=== PATIENT | male | born 1955 | race Caucasian/White ===

== ENCOUNTER 2020-04-17 15:51 | Inpatient (IN) | payer OTHER, MEDICAID, SELFPAY ==
[2020-04-17] VITALS (26 sets, daily range): BP systolic 127–203; BP diastolic 72–108; PULSE 79–104; RESP 12–91; TEMP 36.7–38.8; O2SAT 92–99; BMI 28.5
--- NOTE | 2020-04-17 | DI.RAD.S_ITS ---
PROCEDURE: XR FOREARM RT 2V INDICATIONS: TRAUMA TECHNIQUE: 2 views of the forearm were acquired. COMPARISON: [facility], CR, XR ELBOW RT MIN 3V, 04/17/2020, 16:56. FINDINGS: Bones: No fractures or dislocations. No suspicious bony lesions. Soft tissues: No suspicious soft tissue calcifications or masses. The proximal forearm soft tissue swelling and likely hematoma. Small linear foreign body at the dorsal aspect of the proximal one third of the forearm as seen on the lateral projection. IMPRESSION: 1. No fracture or dislocation. 2. Small linear foreign body at the dorsal aspect of the proximal forearm in the region of soft tissue swelling. Dictated by: Ronny Yi M.D. on 04/17/2020 at 17:27 Approved by: Ronny Yi M.D. on 04/17/2020 at 17:30
--- NOTE | 2020-04-17 | DI.RAD.S_ITS ---
PROCEDURE: XR ELBOW RT MIN 3V INDICATIONS: TRAUMA TECHNIQUE: 3 views of the elbow were acquired. COMPARISON: None. FINDINGS: Bones: No fractures or dislocations. No suspicious bony lesions. Soft tissues: No elbow joint effusion. No suspicious soft tissue calcifications. IMPRESSION: No acute elbow fracture or dislocation. No joint effusion. Dictated by: Phil Erickson M.D. on 04/17/2020 at 17:32 Approved by: Phil Erickson M.D. on 04/17/2020 at 17:33
--- NOTE | 2020-04-17 15:57 | DI.RAD.S_ITS ---
PROCEDURE: XR PELVIS 1-2V INDICATIONS: trauma TECHNIQUE: Single AP view(s) of the pelvis acquired. COMPARISON: None. FINDINGS: Bones: No definite fractures or dislocations. No suspicious bony lesions. Soft tissues: Visualized bowel gas pattern is normal. No suspicious soft tissue calcifications. IMPRESSION: AP pelvis without definite fracture or dislocation. Consider further evaluation with cross-sectional imaging if there is high clinical suspicion for radiographically occult fracture. Dictated by: Sergey Mcmahan M.D. on 04/17/2020 at 16:19 Approved by: Sergey Mcmahan M.D. on 04/17/2020 at 16:20
--- NOTE | 2020-04-17 15:57 | DI.CT.S_ITS ---
PROCEDURE: CT CHEST ABD PEL W CON INDICATIONS: Trauma TECHNIQUE: After the administration of intravenous contrast, 5 mm thick sections acquired from the lung apices to the symphysis. 2.5 mm thick coronal and sagittal reformats were acquired. Additional 7 mm thick coronal maximum intensity projection (MIP) reformats acquired through the lungs. Optional 10-minute delayed imaging may be performed from the kidneys to the bladder. For radiation dose reduction, the following was used: automated exposure control, adjustment of mA and/or kV according to patient size. COMPARISON: None. FINDINGS: Image quality: Excellent. CHEST: Lungs: Patchy ground glass opacities involving the anterior aspect of the right upper lobe may represent early pulmonary contusion. Peripheral right middle lobe and right lower lobe streaky densities favored to represent atelectasis versus scarring. Patchy peripheral groundglass and streaky opacities of the left lower lobe are favored to represent atelectasis. No evidence for left-sided pulmonary contusions or lacerations. No pneumothorax or hemothorax. Central and peripheral airways appear patent and normal in caliber. Mediastinum: No mediastinal hematomas. Heart size is normal. No pericardial effusion. Thoracic aorta and pulmonary arteries demonstrate normal size and enhancement. No mediastinal or hilar adenopathy. Esophagus is normal in caliber. No hiatal hernia. Chest wall: Nondisplaced superior sternal fracture. No substernal hematoma. Nondisplaced posterior right first rib fracture. Age-indeterminate lateral left fifth rib fracture No rib fractures. No subcutaneous emphysema. No axillary or supraclavicular adenopathy. Thyroid gland is unremarkable. ABDOMEN: Solid organs: Liver is normal in size and enhancement, without lacerations. Multiple hepatic cysts. Gallbladder contains several gallstones. No CT evidence for acute cholecystitis. Biliary system is non-dilated. Pancreas enhances normally, without transection. Spleen is normal in size and enhancement, without lacerations. Coarse splenic calcifications likely from prior granulomatous infection. Right sided adrenal hematoma and periadrenal stranding. No left adrenal hematomas. Both kidneys enhance normally, without hydronephrosis or lacerations. Large partially exophytic right renal cyst measuring up to 9.7 cm in maximum dimension. Peritoneum and bowel: No free fluid or air. Extensive scattered colonic diverticula without acute diverticulitis. Segment of submucosal fatty hypertrophy of the duodenum and proximal jejunum likely sequela of chronic inflammatory or infectious process.. Unenhanced bowel loops demonstrate normal wall thickness and caliber. Nodes and vessels: No retroperitoneal or mesenteric adenopathy. Aorta and inferior vena cava are normal in size and enhancement. Miscellaneous: No ventral hernias. PELVIS: Genitourinary: Bladder wall thickness is normal. Miscellaneous: No inguinal hernias or adenopathy. Bones: Pelvic ring and hip joints appear intact. No vertebral compression fractures. IMPRESSION: 1. Nondisplaced superior sternal fracture without substernal hematoma or pericardial effusion. 2. Nondisplaced posterior right first rib fracture and age indeterminate lateral left fifth rib fracture. 3. Patchy groundglass opacity involving the anterior aspect of the right upper lobe likely representing early pulmonary contusion. Followup recommended to ensure resolution. 4. Right adrenal gland hematoma with periadrenal stranding. 5. Colonic diverticulosis without acute diverticulitis. 6. Cholelithiasis without CT evidence for acute cholecystitis. 7. Other chronic findings as above. Findings were discussed with Dr. Bashir of the emergency room at 1725 hrs. Dictated by: Sergey Mcmahan M.D. on 04/17/2020 at 17:04 Approved by: Sergey Mcmahan M.D. on 04/17/2020 at 17:29
--- NOTE | 2020-04-17 15:57 | DI.RAD.S_ITS ---
PROCEDURE: XR CHEST 1V INDICATIONS: trauma TECHNIQUE: One view of the chest was acquired. COMPARISON: None. FINDINGS: Surgical changes and devices: None. Lungs and pleura: Lungs are clear. No pleural effusions or pneumothorax. Azygos lobe fissure is noted incidentally. Mediastinum: Mediastinal contours appear normal accounting for patient positioning and rotation.. Heart size is normal. Bones and chest wall: No suspicious bony lesions. Overlying soft tissues appear unremarkable. IMPRESSION: Chest without acute cardiopulmonary abnormalities. Dictated by: Sergey Mcmahan M.D. on 04/17/2020 at 16:17 Approved by: Sergey Mcmahan M.D. on 04/17/2020 at 16:18
--- NOTE | 2020-04-17 15:57 | DI.CT.S_ITS ---
PROCEDURE: CT HEAD/BRAIN WO CON INDICATIONS: Trauma TECHNIQUE: Noncontrast 4.5 mm thick angled axial sections acquired from the foramen magnum to the vertex, with coronal and sagittal reformats. For radiation dose reduction, the following was used: automated exposure control, adjustment of mA and/or kV according to patient size. COMPARISON: None. FINDINGS: Image quality: Excellent. CSF spaces: Basal cisterns are patent. No extra-axial fluid collections. Ventricles are normal in size and shape. Brain: No midline shift. No intracranial masses or hemorrhage. Williamson-white matter interface is normal. Skull and face: Calvarium and visualized facial bones are intact, without suspicious lesions. Sinuses: Visualized sinuses and mastoids are clear. IMPRESSION: No CT evidence of acute intracranial pathology. Dictated by: Phil Erickson M.D. on 04/17/2020 at 16:33 Approved by: Phil Erickson M.D. on 04/17/2020 at 16:33
--- NOTE | 2020-04-17 15:57 | DI.CT.S_ITS ---
PROCEDURE: CT CERVICAL SPINE WO CON INDICATIONS: Trauma TECHNIQUE: Noncontrast 3 mm thick sections acquired from the skull base to the T4 level. Sagittal and coronal reformats were then constructed. For radiation dose reduction, the following was used: automated exposure control, adjustment of mA and/or kV according to patient size. COMPARISON: None. FINDINGS: Image quality: Excellent. Bones: No fractures or dislocations. Visualized superior ribs are intact. Mild degenerative endplate changes are noted at C4-5 through C6-7 levels. Minimal retrolisthesis of C4 on C5 is seen. Minimal anterolisthesis of C3 on C4 is also noted. Soft tissues: Prevertebral soft tissues are normal in thickness. No paravertebral hematomas. No apical pneumothoraces. IMPRESSION: 1. No acute cervical spine fracture or dislocation. 2. Degenerative disc disease throughout cervical spine as above. Minimal spondylolisthesis at C3-4 and C4-5 levels. Dictated by: Phil Erickson M.D. on 04/17/2020 at 16:33 Approved by: Phil Erickson M.D. on 04/17/2020 at 16:39
[2020-04-17 16:09] LABS: Add Manual Diff / Slide Review NO; Basophils Absolute Auto 100 /uL (0-100); Eosinophils Absolute Auto 300 /uL (0-450); Eosinophils Percent Auto 5.1 % (2-4); Hematocrit 43.6 % (41-53); Hemoglobin 15.6 g/dL (13.5-17.5); Lymphocytes Absolute Auto 1600 /uL (1100-4500); Lymphocytes Percent Auto 23.1 % (25-40); Mean Corpuscular HGB Conc 35.9 % (30-36); Mean Corpuscular Hemoglobin 33.1 PG (26-34); Mean Corpuscular Volume 92.3 fL (80-100); Monocytes Absolute Auto 800 /uL (0-900); Monocytes Percent Auto 11.6 % (3-14); Neutrophils Absolute Auto 4000 /uL (1500-7000); Neutrophils Percent Auto 59.2 % (50-75); Platelet Count 184 X10^3/uL (150-400); Red Blood Cell Count 4.72 X10^6/uL (4.5-5.9); White Blood Cell Count 6.8 X10^3/uL (4.5-11.0)
[2020-04-17 16:16] LABS: Prothrombin Time 11.8 SECONDS (10.1-12.7)
[2020-04-17 16:19] LABS: PTT Partial Thromboplastin Tim 26 SECONDS (26.4-36.2)
[2020-04-17 16:23] LABS: Alanine Aminotransferase 56 IU/L (<50); Albumin 4.5 g/dL (3.5-5.0); Albumin Globulin Ratio 1.4 (1.0-2.8); Alkaline Phosphatase 63 U/L (38-126); Amylase 98 U/L (30-110); Aspartate Aminotransferase 68 IU/L (17-59); BUN Creatinine Ratio 23.8 (6-22); Bilirubin Total 0.8 mg/dL (0.2-1.3); Blood Urea Nitrogen 20 mg/dL (9-20); Calcium 9.4 mg/dL (8.4-10.2); Carbon Dioxide 27 mmol/L (22-32); Chloride 107 mmol/L (98-107); Estimated Glomerular Filt Rate > 60.0 mL/min (>60); Ethanol (ETOH) < 10 mg/dL; Globulin 3.2 g/dL (1.7-4.1); Glucose 112 mg/dL (80-110); HEMOLYSIS 45 (0-50); Lipase 128 U/L (23-300); Potassium 4.2 mmol/L (3.4-5.1); Sodium 141 mmol/L (137-145); Total Protein 7.7 g/dL (6.3-8.2)
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
[2020-04-17] MEDS: MORPHINE 2 MG/ML INJ IV ×2 (18:29→19:03)
[2020-04-17] MEDS: PROPARACAINE 0.5% OPHTH SOL 1 DROPS EYE-BOTH (18:50)
--- NOTE | 2020-04-17 18:50 | PC.NURSE ---
verbal order from dr. Barfield to infuse 600ml NS from medic bag. 0.9%NS infused. see I&'s flowsheet.
[2020-04-17] MEDS: FLUORESCEIN 1 MG STRIP EYE-BOTH (18:52)
[2020-04-17] MEDS: ERYTHROMYCIN OPHTH 1 GM OINT 1 APPLIC EYE-LEFT ×2 (19:08→20:10)
[2020-04-17] MEDS: BACITRACIN OINT 0.9 GM PCKT 1 APPLIC TOP (19:18)
[2020-04-17 19:19] LABS: Bacteria Urine None Seen
[2020-04-17 19:21] LABS: Appearance Urine UA CLEAR; Bilirubin Urine UA NEGATIVE (NEGATIVE); Color Urine UA YELLOW; Glucose Urine UA NEGATIVE (Negative); Ketones Urine UA NEGATIVE (NEGATIVE); Leukocyte Esterase Urine UA NEGATIVE (NEGATIVE); Nitrite Urine UA NEGATIVE (Negative); Occult Blood Urine UA 1+ (Negative); Protein Urine UA NEGATIVE (Negative); Specific Gravity Urine UA <=1.005 (1.000-1.035); Urobilinogen Urine UA 0.2 E.U./dL (0.2)
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
[2020-04-17 19:37] LABS: Culture Indicated Urine Cult Not Indicated; RBC Urine 5-10/HPF (0-5/HPF); WBC Urine 0-1/HPF (0-5/HPF)
[2020-04-17] MEDS: LACTATED RINGERS 1,000 ML 125 ML IV (20:09)
[2020-04-17] MEDS: lisinopriL 10 MG TABLET 30 MG PO (20:17)
[2020-04-17] MEDS: ACETAMINOPHEN 325 MG TABLET 650 MG PO (20:18)
[2020-04-17] MEDS: GABAPENTIN 300 MG CAPSULE PO (20:18)
[2020-04-17] MEDS: LORATADINE 10 MG TABLET PO (20:19)
[2020-04-17] MEDS: OXYCODONE IR 5 MG TABLET 7.5 MG PO (20:19)
[2020-04-17 20:49] LABS: COVID19 -Nasal RAPID Negative (Negative)
[2020-04-17 20:53] LABS: Creatine Kinase 260 U/L (55-170)
[2020-04-17 21:06] LABS: Troponin I 0.014 ng/mL (0.01-0.034)
[2020-04-17 21:09] LABS: CKMB % Relative Index 1.2 % (1.5-5.0); Creatine Kinase MB 3.21 ng/mL (<2.37)
[2020-04-17] MEDS: TAMSULOSIN 0.4 MG CAPSULE PO (22:11)
[2020-04-18] VITALS (10 sets, daily range): BP systolic 119–163; BP diastolic 58–83; PULSE 71–95; RESP 12–18; TEMP 36.6–37.3; O2SAT 91–95; BMI 28.5
[2020-04-18] MEDS: OXYCODONE IR 5 MG TABLET 7.5 MG PO ×2 (00:52→09:22)
[2020-04-18] MEDS: LACTATED RINGERS 1,000 ML 125 ML IV ×3 (04:44→23:40)
[2020-04-18 05:33] LABS: Add Manual Diff / Slide Review NO; Basophils Absolute Auto 0 /uL (0-100); Basophils Percent Auto 0.4 % (0-2); Eosinophils Absolute Auto 0 /uL (0-450); Eosinophils Percent Auto 0.2 % (2-4); Hematocrit 37.4 % (41-53); Hemoglobin 13.2 g/dL (13.5-17.5); Lymphocytes Absolute Auto 600 /uL (1100-4500); Lymphocytes Percent Auto 7.7 % (25-40); Mean Corpuscular HGB Conc 35.4 % (30-36); Mean Corpuscular Hemoglobin 32.7 PG (26-34); Mean Corpuscular Volume 92.3 fL (80-100); Monocytes Absolute Auto 800 /uL (0-900); Monocytes Percent Auto 10.5 % (3-14); Neutrophils Absolute Auto 6000 /uL (1500-7000); Neutrophils Percent Auto 81.2 % (50-75); Platelet Count 132 X10^3/uL (150-400); Red Blood Cell Count 4.05 X10^6/uL (4.5-5.9); Red Cell Distribution Width 13.2 % (11.6-14.8); White Blood Cell Count 7.3 X10^3/uL (4.5-11.0)
[2020-04-18 05:39] LABS: Creatine Kinase 320 U/L (55-170)
[2020-04-18 05:43] LABS: BUN Creatinine Ratio 21.7 (6-22); Blood Urea Nitrogen 18 mg/dL (9-20); Calcium 8.7 mg/dL (8.4-10.2); Carbon Dioxide 26 mmol/L (22-32); Chloride 108 mmol/L (98-107); Estimated Glomerular Filt Rate > 60.0 mL/min (>60); Glucose 127 mg/dL (80-110); HEMOLYSIS < 15 (0-50); Sodium 139 mmol/L (137-145)
[2020-04-18 05:48] LABS: Alanine Aminotransferase 49 IU/L (<50); Albumin 3.6 g/dL (3.5-5.0); Albumin Globulin Ratio 1.5 (1.0-2.8); Alkaline Phosphatase 51 U/L (38-126); Aspartate Aminotransferase 48 IU/L (17-59); Bilirubin Total 1.2 mg/dL (0.2-1.3); Bilirubin Unconjugated 1.2 mg/dL (0.0-1.1); Globulin 2.4 g/dL (1.7-4.1); HEMOLYSIS < 15 (0-50)
[2020-04-18 05:52] LABS: Troponin I < 0.012 ng/mL (0.01-0.034)
[2020-04-18 05:54] LABS: CKMB % Relative Index 0.8 % (1.5-5.0); Creatine Kinase MB 2.54 ng/mL (<2.37)
[2020-04-18 06:18] LABS: Prostate Specific Antigen 3.67 ng/mL (0.10-4.00)
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
[2020-04-18] MEDS: SENNOSIDES 8.6 MG TABLET 17.2 MG PO (09:19)
[2020-04-18] MEDS: KETOROLAC 15 MG/ML VIAL IV ×3 (09:19→21:39)
[2020-04-18] MEDS: GABAPENTIN 300 MG CAPSULE PO ×2 (09:19→21:39)
[2020-04-18] MEDS: ERYTHROMYCIN OPHTH 1 GM OINT 1 APPLIC EYE-LEFT ×2 (09:49→21:42)
[2020-04-18 13:34] LABS: Hematocrit 37.4 % (41-53)
--- NOTE | 2020-04-18 14:21 | PM.PN.1 ---
Subjective Subjective Date Patient Seen: 04/18/20 Time Patient Seen: 14:21 Interval history: The patient was seen this morning and now. He was complaining of more eye pain on the left. His breathing is limited by chest pain. Feels a little bit nauseated. Has been able to void on his own. No new complaints of pain. Does not think he is getting his albuterol. Exam Vital Signs (past 8 hours): - 04/18/20 09:32 04/18/20 12:00 Temperature 98 F 98.8 F Pulse Rate 75 71 Respiratory Rate 13 16 Blood Pressure 119/67 122/73 Pulse Oximetry 94 94 Oxygen Delivery Method Room Air,Nasal Cannula Oxygen Flow Rate 0 Narrative Exam Narrative: Patient has a dry scab right temporal area. Small tiny lacerations noted about his face and right arm. Swelling in bruise at the right elbow area has decreased. Lungs actually has fairly good respiratory effort. Clear to auscultation. Heart regular rate and rhythm without murmur gallop. Abdomen is soft protuberant no obvious tenderness or guarding. Objective Labs Result Diagrams: 04/18/20 13:23 04/18/20 05:00 Labs: Laboratory Results - last 24 hr 04/17/20 04/17/20 04/17/20 15:58 15:58 15:58 WBC 6.8 RBC 4.72 Hgb 15.6 Hct 43.6 MCV 92.3 MCH 33.1 MCHC 35.9 RDW 13.0 Plt Count 184 Neut % (Auto) 59.2 Lymph % (Auto) 23.1 L Hutch[place] % (Auto) 11.6 Eos % (Auto) 5.1 H Baso % (Auto) 1.0 Neut # (Auto) 4000 Lymph # (Auto) 1600 [place] # (Auto) 800 Eos # (Auto) 300 Baso # (Auto) 100 PT 11.8 INR 1.0 APTT 26 L Sodium 141 Potassium 4.2 Chloride 107 Carbon Dioxide 27 BUN 20 Creatinine 0.84 Estimated GFR > 60.0 BUN/Creatinine Ratio 23.8 H Glucose 112 H Calcium 9.4 Total Bilirubin 0.8 Conjugated Bilirubin Unconjugated Bilirubin AST 68 H ALT 56 H Alkaline Phosphatase 63 Total Creatine Kinase CK-MB (CK-2) CK-MB (CK-2) Rel Index Troponin I Total Protein 7.7 Albumin 4.5 Globulin 3.2 Albumin/Globulin Ratio 1.4 Amylase 98 Lipase 128 Prostate Specific Ag Urine Color Urine Appearance Urine pH Ur Specific Nye Urine Protein Urine Glucose (UA) Urine Ketones Urine Occult Blood Urine Nitrate Urine Bilirubin Urine Urobilinogen Ur Leukocyte Esterase Urine RBC Urine WBC Urine Bacteria Ur Culture Indicated? Ethyl Alcohol < 10 COVID-19 PCR Blood Type Antibody Screen 04/17/20 04/17/20 04/17/20 15:58 16:17 18:08 WBC RBC Hgb Hct MCV MCH MCHC RDW Plt Count Neut % (Auto) Lymph % (Auto) Hutchinson % (Auto) Eos % (Auto) Baso % (Auto) Neut # (Auto) Lymph # (Auto) Hutch[place] # (Auto) Eos # (Auto) Baso # (Auto) PT INR APTT Sodium Potassium Chloride Carbon Dioxide BUN Creatinine Estimated GFR BUN/Creatinine Ratio Glucose Calcium Total Bilirubin Conjugated Bilirubin Unconjugated Bilirubin AST ALT Alkaline Phosphatase Total Creatine Kinase CK-MB (CK-2) CK-MB (CK-2) Rel Index Troponin I Total Protein Albumin Globulin Albumin/Globulin Ratio Amylase Lipase Prostate Specific Ag Urine Color Yellow Urine Appearance Clear Urine pH 5.0 Ur Specific Nye <=1.005 Urine Protein Negative Urine Glucose (UA) Negative Urine Ketones Negative Urine Occult Blood 1+ H Urine Nitrate Negative Urine Bilirubin Negative Urine Urobilinogen 0.2 Ur Leukocyte Esterase Negative Urine RBC 5-10/hpf H Urine WBC 0-1/hpf Urine Bacteria None seen Ur Culture Indicated? Cult not indicated Ethyl Alcohol COVID-19 PCR Negative Blood Type A Positive Antibody Screen Negative 04/17/20 04/18/20 04/18/20 20:35 05:00 05:00 WBC RBC Hgb Hct MCV MCH MCHC RDW Plt Count Neut % (Auto) Lymph % (Auto) Hutchinson % (Auto) Eos % (Auto) Baso % (Auto) Neut # (Auto) Lymph # (Auto) Hutch[place] # (Auto) Eos # (Auto) Baso # (Auto) PT INR APTT Sodium Potassium Chloride Carbon Dioxide BUN Creatinine Estimated GFR BUN/Creatinine Ratio Glucose Calcium Total Bilirubin Conjugated Bilirubin Unconjugated Bilirubin AST ALT Alkaline Phosphatase Total Creatine Kinase 260 H 320 H CK-MB (CK-2) 3.21 H 2.54 H CK-MB (CK-2) Rel Index 1.2 L 0.8 L Troponin I 0.014 < 0.012 Total Protein Albumin Globulin Albumin/Globulin Ratio Amylase Lipase Prostate Specific Ag 3.67 Urine Color Urine Appearance Urine pH Ur Specific Nye Urine Protein Urine Glucose (UA) Urine Ketones Urine Occult Blood Urine Nitrate Urine Bilirubin Urine Urobilinogen Ur Leukocyte Esterase Urine RBC Urine WBC Urine Bacteria Ur Culture Indicated? Ethyl Alcohol COVID-19 PCR Blood Type Antibody Screen 04/18/20 04/18/20 04/18/20 05:00 05:00 05:00 WBC 7.3 RBC 4.05 L Hgb 13.2 L Hct 37.4 L MCV 92.3 MCH 32.7 MCHC 35.4 RDW 13.2 Plt Count 132 L Neut % (Auto) 81.2 H D Lymph % (Auto) 7.7 L Hutchinson % (Auto) 10.5 Eos % (Auto) 0.2 L Baso % (Auto) 0.4 Neut # (Auto) 6000 Lymph # (Auto) 600 L Hutchinson # (Auto) 800 Eos # (Auto) 0 Baso # (Auto) 0 PT INR APTT Sodium 139 Potassium 4.0 Chloride 108 H Carbon Dioxide 26 BUN 18 Creatinine 0.83 Estimated GFR > 60.0 BUN/Creatinine Ratio 21.7 Glucose 127 H Calcium 8.7 Total Bilirubin 1.2 Conjugated Bilirubin 0.0 Unconjugated Bilirubin 1.2 H AST 48 ALT 49 Alkaline Phosphatase 51 Total Creatine Kinase CK-MB (CK-2) CK-MB (CK-2) Rel Index Troponin I Total Protein 6.0 L Albumin 3.6 Globulin 2.4 Albumin/Globulin Ratio 1.5 Amylase Lipase Prostate Specific Ag Urine Color Urine Appearance Urine pH Ur Specific Nye Urine Protein Urine Glucose (UA) Urine Ketones Urine Occult Blood Urine Nitrate Urine Bilirubin Urine Urobilinogen Ur Leukocyte Esterase Urine RBC Urine WBC Urine Bacteria Ur Culture Indicated? Ethyl Alcohol COVID-19 PCR Blood Type Antibody Screen 04/18/20 13:23 WBC RBC Hgb Hct 37.4 L MCV MCH MCHC RDW Plt Count Neut % (Auto) Lymph % (Auto) Hutch[place] % (Auto) Eos % (Auto) Baso % (Auto) Neut # (Auto) Lymph # (Auto) [place] # (Auto) Eos # (Auto) Baso # (Auto) PT INR APTT Sodium Potassium Chloride Carbon Dioxide BUN Creatinine Estimated GFR BUN/Creatinine Ratio Glucose Calcium Total Bilirubin Conjugated Bilirubin Unconjugated Bilirubin AST ALT Alkaline Phosphatase Total Creatine Kinase CK-MB (CK-2) CK-MB (CK-2) Rel Index Troponin I Total Protein Albumin Globulin Albumin/Globulin Ratio Amylase Lipase Prostate Specific Ag Urine Color Urine Appearance Urine pH Ur Specific Nye Urine Protein Urine Glucose (UA) Urine Ketones Urine Occult Blood Urine Nitrate Urine Bilirubin Urine Urobilinogen Ur Leukocyte Esterase Urine RBC Urine WBC Urine Bacteria Ur Culture Indicated? Ethyl Alcohol COVID-19 PCR Blood Type Antibody Screen Assessment & Plan Assessment and plan (1) Chest trauma: Problem details: Continue deep breathing coughing. Encouraged use of incentive spirometer. Continue pain medication. A because in little nausea so we may have to watch that Status: Acute (2) Concussion: Problem details: Observe for deterioration. Observe for symptoms. Treat his headache. Status: Acute (3) Traumatic adrenal hematoma: Problem details: No abdominal wall tenderness. No tenderness in the right abdomen. Hematocrit initially for went from 43 at 37 but has been at 37 and has not changed. Therefore will continue to observe Status: Acute (4) Benign prostatic hyperplasia: Problem details: PSA is normal. Will continue Flomax Status: Acute (5) Seasonal allergies: Problem details: Continue Claritin daily Status: Acute (6) Asthma: Problem details: Continue patient's inhalers. Patient actually has them in the room and can use them. Work on deep breathing and coughing. Status: Acute (7) Essential hypertension with goal blood pressure less than 130/85: Problem details: Continue patient's lisinopril. Blood pressure much improved from yesterday Status: Acute (8) Sternal fracture: Problem details: Pain medication. Because he has a sternal fracture also evaluate the heart for contusion. Cardiac enzymes and EKGs negative for cardiac injury. Doubt contusion. Qualifiers: Encounter type: initial encounter Fracture type: closed Sternal location: body of sternum Qualified Code(s): S22.22XA - Fracture of body of sternum, initial encounter for closed fracture Status: Acute (9) Abrasion of cornea, left: Problem details: Talk to Dr. Gamino or of the safety director. He saw the patient and reports a linear abrasion in the left eye which will probably be healed by tomorrow. There is no evidence of any significant I trauma or any foreign body such as glass in the eye. Qualifiers: Encounter type: initial encounter Qualified Code(s): S05.02XA - Injury of conjunctiva and corneal abrasion without foreign body, left eye, initial encounter Status: Acute (10) Fracture of rib: Problem details: Patient has a left 5th rib fracture. Will continue pain medication encouraged deep breathing and coughing and use An incentive spirometer Qualifiers: Encounter type: initial encounter Laterality: unspecified laterality Rib fracture type: multiple ribs Status: Acute Assessment & Plan narrative: Discharge planning and physical therapy to see to mobilize and plan for discharge. Expect he may be able to be discharged tomorrow.
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
[2020-04-18] MEDS: TAMSULOSIN 0.4 MG CAPSULE PO (15:39)
[2020-04-18] MEDS: ONDANSETRON 4 MG/2 ML INJ IV (15:39)
[2020-04-18] MEDS: lisinopriL 10 MG TABLET 30 MG PO (21:39)
[2020-04-18] MEDS: LORATADINE 10 MG TABLET PO (21:39)
[2020-04-18] MEDS: DOCUSATE 100 MG CAPSULE PO (21:39)
--- NOTE | 2020-04-18 21:54 | DI.RAD.S_ITS ---
PROCEDURE: XR CHEST 1V INDICATIONS: increasing 02 needs TECHNIQUE: One view of the chest was acquired. COMPARISON: [facility], CR, XR CHEST 1VW (PORTABLE), 04/18/2017, 19:23. [facility], CR, XR CHEST 1V, 04/17/2020, 15:40. FINDINGS: Surgical changes and devices: None. Lungs and pleura: Mild streaky bibasilar opacities. No pleural effusions or pneumothorax. A new mild patchy right basilar opacity is noted. No focal consolidation. Mediastinum: The cardiomediastinal contours remain stable. Heart size is normal. Bones and chest wall: No suspicious bony lesions. Overlying soft tissues appear unremarkable. IMPRESSION: Mild streaky bibasilar opacities likely representing atelectasis. A new right basilar patchy opacity may represent developing airspace disease, aspiration, versus pulmonary contusion given history of recent trauma. No focal consolidation. Dictated by: Sergey Mcmahan M.D. on 04/19/2020 at 9:01 Approved by: Sergey Mcmahan M.D. on 04/19/2020 at 9:10
--- NOTE | 2020-04-18 22:01 | PC.NURSE ---
2200- Patient assisted up to the bathroom. Patient unable to have a BM but did pass gas. Patient has a productive cough, pierre colored sputum. Very small amount. Patient has bibasilar crackles and is desaturating to 87-88% on room air. Patient placed on 2l 02 via cannula, patient given his IS to do. Patient is able to get IS to 2500 he did 5 breaths. Patient has a great amount of discomfort with cough and with deep breathing. Medicated per order for pain. Dr. Mei updated on patient pulmonary status, order rec.
[2020-04-18] MEDS: ALBUTEROL HFA 60 PUFF/8 GM INH INH (23:30)
[2020-04-19] VITALS (9 sets, daily range): BP systolic 108–150; BP diastolic 63–78; PULSE 63–92; RESP 12–16; TEMP 36.6–37.7; O2SAT 93–97
[2020-04-19] MEDS: KETOROLAC 15 MG/ML VIAL IV ×3 (04:53→20:54)
[2020-04-19] MEDS: LACTATED RINGERS 1,000 ML 125 ML IV (06:55)
[2020-04-19] MEDS: SENNOSIDES 8.6 MG TABLET 17.2 MG PO (08:34)
[2020-04-19] MEDS: GABAPENTIN 300 MG CAPSULE PO ×2 (08:34→20:48)
[2020-04-19] MEDS: OXYCODONE IR 5 MG TABLET 7.5 MG PO ×2 (08:35→14:29)
[2020-04-19] MEDS: DOCUSATE 100 MG CAPSULE PO (08:35)
[2020-04-19] MEDS: ACETAMINOPHEN 325 MG TABLET 650 MG PO ×2 (08:35→14:29)
[2020-04-19] MEDS: ERYTHROMYCIN OPHTH 1 GM OINT 1 APPLIC EYE-LEFT ×2 (10:38→20:48)
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
--- NOTE | 2020-04-19 13:46 | CM.DPC ---
DCP: continued: case received and discussed in Team Rounds. PT is seeing pt for the first time today. PT Amada has just given update. She states that pt would benefit from OT evaluation/order for same /now obtained. She notes that with the sternal precautions especially pt will need some different ways to manage his basic functional abilities. Will be following. Am unsure if pt has a PCP and also how much help he will actually have in his current home setting. Per LOPEZ/Eduard Dewitt in her note yesterday pt reports that his friend/family will be able to assist him. Will be checking in with pt as time allows.
--- NOTE | 2020-04-19 15:19 | P.PN_ITS ---
Subjective Subjective Date Patient Seen: 04/19/20 Time Patient Seen: 15:19 Interval history: Patient having some low-grade intermittent nausea. He developed hypoxia mild last night. Chest x-ray showed possible contusion or atelectasis in the right lobe. He is breathing comfortably he says. He does have pain with deep inspiration. He is using his incentive spirometer and his inhalers. He did have a bowel movement that was normal though small. He thinks he may be getting a little constipated. He was up with physical therapy today ambulating. Exam Vital Signs (past 8 hours): - 04/19/20 08:00 04/19/20 12:39 Temperature 98.2 F 98.8 F Pulse Rate 91 H 69 Respiratory Rate 12 12 Blood Pressure 137/78 108/63 Pulse Oximetry 93 96 Oxygen Delivery Method Room Air Oxygen Flow Rate 2 Narrative Exam Narrative: Good air movement. Clear. Heart regular rate and rhythm. Still was some chest pain related to his sternal and rib fracture. Abdomen is soft protuberant no tenderness at this time. Patient is alert and oriented. His extraocular movements are intact. He reports his vision is normal. Objective Labs Result Diagrams: 04/18/20 13:23 04/18/20 05:00 Assessment & Plan Assessment and plan (1) Concussion: Problem details: Observe for deterioration. Observe for symptoms. Treat his headache. Will discharge on Elavil as well as gabapentin. Stable at this time Status: Acute (2) Traumatic adrenal hematoma: Problem details: No abdominal wall tenderness. No tenderness in the right abdomen. Hematocrit initially for went from 43 at 37 but has been at 37 and has not changed. Therefore will continue to observe Status: Acute (3) Benign prostatic hyperplasia: Problem details: PSA is normal. Will continue Flomax. Urinating well Status: Acute (4) Seasonal allergies: Problem details: Continue Claritin daily Status: Acute (5) Asthma: Problem details: Continue patient's inhalers. Patient actually has them in the room and can use them. Work on deep breathing and coughing. Status: Acute (6) Essential hypertension with goal blood pressure less than 130/85: Problem details: Continue patient's lisinopril. Blood pressure much improved from yesterday Status: Acute (7) Sternal fracture: Problem details: Pain medication. Because he has a sternal fracture also evaluate the heart for contusion. Cardiac enzymes and EKGs negative for cardiac injury. Doubt contusion. Work on deep breathing and coughing however due to his hypoxia. Qualifiers: Encounter type: initial encounter Fracture type: closed Sternal location: body of sternum Qualified Code(s): S22.22XA - Fracture of body of sternum, initial encounter for closed fracture Status: Acute (8) Fracture of rib: Problem details: Patient has a left 5th rib fracture. Will continue pain medication encouraged deep breathing and coughing and use An incentive spirometer. Will adjust his pain medication. Part of his hypoxia may be related to narcotics he has been getting. I would like to reduce or eliminate those. Qualifiers: Encounter type: initial encounter Laterality: unspecified laterality Rib fracture type: multiple ribs Status: Acute (9) Abrasion of cornea, left: Problem details: Talk to Dr. Littlejohn the program director/morning show host yesterday. He saw the patient and reports a linear abrasion in the left eye which will probably be healed by tomorrow. There is no evidence of any significant I trauma or any foreign body such as glass in the eye. Will stop his antibiotic ointment tonight. Qualifiers: Encounter type: initial encounter Qualified Code(s): S05.02XA - Injury of conjunctiva and corneal abrasion without foreign body, left eye, initial encounter Status: Acute
[2020-04-19] MEDS: MAGNESIUM HYDROXIDE 30 ML UDC PO (17:47)
[2020-04-19] MEDS: lisinopriL 10 MG TABLET 30 MG PO (20:49)
[2020-04-19] MEDS: TAMSULOSIN 0.4 MG CAPSULE PO ×2 (20:52→20:53)
[2020-04-19] MEDS: LORATADINE 10 MG TABLET PO (20:52)
[2020-04-20] VITALS (7 sets, daily range): BP systolic 105–141; BP diastolic 62–75; PULSE 64–102; RESP 16–20; TEMP 36.7–38.1; O2SAT 91–96
[2020-04-20] MEDS: KETOROLAC 15 MG/ML VIAL IV ×2 (04:39→23:58)
[2020-04-20] MEDS: SENNOSIDES 8.6 MG TABLET 17.2 MG PO (09:13)
[2020-04-20] MEDS: DOCUSATE 100 MG CAPSULE PO (09:13)
[2020-04-20] MEDS: ACETAMINOPHEN 325 MG TABLET 650 MG PO (09:13)
[2020-04-20] MEDS: GABAPENTIN 300 MG CAPSULE PO ×2 (09:13→20:09)
--- NOTE | 2020-04-20 09:46 | DI.RAD.S_ITS ---
PROCEDURE: XR CHEST 1V INDICATIONS: interval change; persistent O2 requirement. TECHNIQUE: One view of the chest was acquired. COMPARISON: [facility], CR, XR CHEST 1V, 04/18/2020, 22:05. FINDINGS: Surgical changes and devices: None. Lungs and pleura: Streaky atelectasis in the right lung base with air space opacity is worse when compared with the prior study. The left lung and pleural space are clear. Right pleural space is clear. Mediastinum: Mediastinal contours appear normal. Heart size is normal. Bones and chest wall: No suspicious bony lesions. Overlying soft tissues appear unremarkable. IMPRESSION: Worsened right lung base streaky atelectasis and adjacent airspace opacity. Findings may represent atelectasis although a superimposedon 04/20/2020 at 10:12 infectious process would cause a similar appearance Approved by: Hever Ireland M.D. on 04/20/2020 at 10:12
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
[2020-04-20 10:14] LABS: Add Manual Diff / Slide Review NO; Basophils Absolute Auto 0 /uL (0-100); Basophils Percent Auto 0.4 % (0-2); Eosinophils Absolute Auto 300 /uL (0-450); Eosinophils Percent Auto 4.8 % (2-4); Hematocrit 34.1 % (41-53); Hemoglobin 12.2 g/dL (13.5-17.5); Lymphocytes Absolute Auto 400 /uL (1100-4500); Mean Corpuscular HGB Conc 35.8 % (30-36); Mean Corpuscular Volume 92.2 fL (80-100); Monocytes Absolute Auto 600 /uL (0-900); Monocytes Percent Auto 9.2 % (3-14); Neutrophils Absolute Auto 5200 /uL (1500-7000); Neutrophils Percent Auto 79.6 % (50-75); Platelet Count 114 X10^3/uL (150-400); Red Blood Cell Count 3.69 X10^6/uL (4.5-5.9); White Blood Cell Count 6.6 X10^3/uL (4.5-11.0)
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
[2020-04-20] MEDS: PIPERACILLIN-TAZO 3.375 GM/50 ML FROZ.PIGGY IV ×3 (12:07→22:22)
--- NOTE | 2020-04-20 13:14 | PC.NURSE ---
Assumed care of patient at 1230. Patient is sitting up in chair eating lunch, denies pain at this time. NC, O2 at 2L. IV abx are complete at this time, R AC saline locked. Call light in reach, patient denies further needs at this time.
[2020-04-20] MEDS: ALBUTEROL HFA 60 PUFF/8 GM INH INH (19:54)
--- NOTE | 2020-04-20 19:58 | PC.NURSE ---
Patient reports difficulty coughing due to pain, gave patient teaching on how to use pillow for bracing/splinting for comfort. Patient states it helped a little but not much. Inhaler was given per orders as well.
[2020-04-20] MEDS: lisinopriL 10 MG TABLET 30 MG PO (20:08)
[2020-04-20] MEDS: LORATADINE 10 MG TABLET PO (20:09)
[2020-04-20] MEDS: SODIUM CHLORIDE 0.9% FLUSH 10 ML IV ×2 (20:16→20:17)
[2020-04-21] VITALS (16 sets, daily range): BP systolic 107–155; BP diastolic 68–89; PULSE 64–89; RESP 16–20; TEMP 36.7–37.6; O2SAT 91–98
[2020-04-21] MEDS: SODIUM CHLORIDE 0.9% FLUSH 10 ML IV ×6 (04:35→23:31)
[2020-04-21] MEDS: PIPERACILLIN-TAZO 3.375 GM/50 ML FROZ.PIGGY IV ×4 (04:35→22:49)
[2020-04-21] MEDS: ALBUTEROL HFA 60 PUFF/8 GM INH INH ×2 (08:43→21:51)
[2020-04-21] MEDS: KETOROLAC 15 MG/ML VIAL IV ×3 (09:52→22:54)
[2020-04-21] MEDS: TAMSULOSIN 0.4 MG CAPSULE PO (09:52)
[2020-04-21] MEDS: SENNOSIDES 8.6 MG TABLET 17.2 MG PO (09:52)
[2020-04-21] MEDS: GABAPENTIN 300 MG CAPSULE PO ×2 (09:52→20:51)
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
[2020-04-21] MEDS: LIDOCAINE PATCH 1 EACH ADH..PATCH TOP (10:59)
[2020-04-21] MEDS: polyethylene glycoL 3350 17 GM POWD.PACK PO (11:00)
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
--- NOTE | 2020-04-21 13:42 | PC.NURSE ---
Shift summary: Answered all orientation questions correctly. Slow to answer some questions. OT reported patient did not do very well on his cognitive SLUMS test (see her note). Was medicated with IV Toradol for sternal pain. Declined Lidocaine patch when offered, patient aware he can request at any time. Lungs CTA, dim posterior bases. Denies SOB. Reports intermittent cough, slightly re-tinged sputum which MD is aware of based on her progress note from today. Room air at rest 90-92%. Per physical therapy, sats improved with activity (94-98% ambulating hallway). Able to make needs known and generally calls appropriately. Light and belongings within reach, chair alarm on.
[2020-04-21] MEDS: OXYCODONE IR 5 MG TABLET PO (16:45)
[2020-04-21] MEDS: LORATADINE 10 MG TABLET PO (20:51)
[2020-04-21] MEDS: lisinopriL 10 MG TABLET 30 MG PO (20:51)
[2020-04-22] VITALS (9 sets, daily range): BP systolic 132–166; BP diastolic 80–91; PULSE 74–104; RESP 16–19; TEMP 36.6–37.3; O2SAT 92–98
[2020-04-22] MEDS: PIPERACILLIN-TAZO 3.375 GM/50 ML FROZ.PIGGY IV ×4 (04:17→22:22)
[2020-04-22] MEDS: SODIUM CHLORIDE 0.9% FLUSH 10 ML IV ×4 (04:17→20:10)
--- NOTE | 2020-04-22 08:53 | CM.DPC ---
Addendum entered by Comfort Cason R.N. 04/22/20 09:54: Spoke to Alana at prison services at [facility]. Stated that they would review, and would also update telephonic nurse case manager, Sandrita Byrd. This is regarding attempting to get patient to [facility]. Original Note: DCP Cont: It is verified from admission counselor, that patient is active under his Michelle. Went ahead and printed out face sheet, showing Michelle number. Called Marisa at [facility] and let her know that this patient does have Michelle. Faxed her over the updated face sheet. She still has referral. Faxed over P.T/O.T. notes from yesterday, over to [facility] to review. P: DCP to continue to follow. [facility] and [facility], have been sent referrals. It is uncertain if [facility] is contracted with [facility]. Left a message with [facility], regarding insurance update. Will follow up with [facility] telephonic nurse case manager today as well. Comfort Cason RN/Batch Trucker
[2020-04-22] MEDS: GABAPENTIN 300 MG CAPSULE PO ×2 (09:01→20:10)
[2020-04-22] MEDS: LIDOCAINE PATCH 1 EACH ADH..PATCH TOP (09:01)
[2020-04-22] MEDS: KETOROLAC 15 MG/ML VIAL IV (09:01)
[2020-04-22] MEDS: SENNOSIDES 8.6 MG TABLET 17.2 MG PO (09:01)
[2020-04-22] MEDS: TAMSULOSIN 0.4 MG CAPSULE PO (09:01)
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
--- NOTE | 2020-04-22 10:53 | CM.DPC ---
Addendum entered by Comfort Cason R.N. 04/22/20 13:27: Spoke to Jenelle at [facility]. Patient was denied [facility] for [facility]. Paged Dr. Klein to give her update. Encouraged to have patient have friend, or who he is currently residing with, come in for caregiver training tomorrow. [facility] was also going to contact patient, but encouraged Jenelle if patient gives permission and does not understand denial, he may allow her to contact friend. Dr. Klein stated that Dr. Nguyen will be on tomorrow and will be up to see patient after surgery. Will plan on discharge tomorrow. Addendum entered by Comfort Cason R.N. 04/22/20 11:25: Called and left a message for [facility] to see if they are accepting patients, and if they work with [facility]. Went ahead and faxed over the referral. [facility] stated that they will review tomorrow. This is still pending [facility] approval. Original Note: DCP Cont: Discussed patient with Dr. Hernadez. Concern is cognitive level, as is not noted what his base line is, since he has no immediate family. Let her know that his SLUMMS was 20-30, per O.T. Also, let her know that this [employer] is attempting to get patient into skilled facility, but awaiting [facility] auth. Let Dr. Hernadez know that this case manage would page her and update her on referral. [facility] would not be able to accept patient today, and also, sent to [facility], but they also may not be able to accept today. This will also depend upon authorization. Other option if for him to go home with friends. P: DCP to continue to await getting authorization from [facility]. Will follow up again with a phone call. P.T. is also working with patient today. Comfort Cason RN/Ingredient Scaler Helper
[2020-04-22] MEDS: SODIUM CHLORIDE 0.9% 250 ML 21 ML IV (11:17)
--- NOTE | 2020-04-22 11:35 | PT.IPTN ---
Current Diagnoses Essential (primary) hypertension (04/17/20) Other seasonal allergic rhinitis (04/17/20) Unspecified asthma, uncomplicated (04/17/20) Calculus of gallbladder without cholecystitis without obstruction (04/17/20) Benign prostatic hyperplasia without lower urinary tract symptoms (04/17/20) Injury of conjunctiva and corneal abrasion without foreign body, left eye, initial encounter (04/17/20) Concussion with loss of consciousness of unspecified duration, initial encounter (04/17/20) Fracture of body of sternum, initial encounter for closed fracture (04/17/20) Fracture of one rib, unspecified side, initial encounter for closed fracture (04/17/20) Unspecified injury of thorax, initial encounter (04/17/20) Contusion of adrenal gland, initial encounter (04/17/20) Physical Therapy Treatment Note M2 PT-IP Current Condition Start: 04/19/20 12:23 Freq: NEEDED Status: Active Protocol: Document 04/19/20 10:43 AB (Rec: 04/19/20 12:39 AB [id number]) Physical Therapy Current Condition Current Condition Evaluation Date 04/19/20 Treatment Diagnosis sternum fx; L 5th rib fx; difficulty in walking Onset Date 04/17/20 Precautions Other Precautions Sternal precautions M3 PT-IP Subjective Start: 04/19/20 12:23 Freq: NEEDED Status: Active Protocol: Document 04/22/20 10:38 DONTE (Rec: 04/22/20 11:35 DONTE [id number]) Subjective Physical Therapy Visit Type Type Treatment Note Visit Start Time 10:38 Visit Stop Time 11:09 Total Visit Minutes 31 Number of [employer]PECTING Visits 1 Physical Therapy Visit Comments Patient Comments Pt in chair. States nursing kept him awake during the night for a while and he did not get much sleep. Therapy Pain Assessment Pain When Pain Assessed During Mobility Pain Present Pain Present Pain Reported M4 PT-IP Mobility and Gait Start: 04/19/20 12:23 Freq: NEEDED Status: Active Protocol: Document 04/22/20 10:38 DONTE (Rec: 04/22/20 11:35 [id number]) PT-Transfer Assessment Sit to and From Stand Sit to and from Stand Standby Assistance,1 Person Assistance Equipment Transfer Assistive Device None,Gait Belt Transfers Transfer Destination Chair Transfer Technique ambulated Transfer Ability Level of Assist Standby Assistance Comments Mobility Comments Pt able to stand up and sit down without the use of his UEs. Completed 2 sit<>stand and independently used the toilet prior to walking in the hallway. Gait Assessment Gait Gait Assistance Required: Standby Assistance,1 Person Assist Distance (Feet) 150 Assistive Devices Assistive Device Gait Belt,Front Wheeled Walker Gait Deviations General Gait Pattern Antalgic,Decreased Stride Length,Decreased Feet Clearance Factors Limiting Gait Function Factors Limiting Gait Function Decreased Activity Tolerance, Decreased Strength,Pain,Poor Balance Comments Gait Comments Pt moves slowly but is improving with gait and activity tolerance. Occasionally picked FWW up to move it while moving in the bahroom. Instructed to not lift it. M5 PT-IP Objective Assessments Start: 04/19/20 12:23 Freq: NEEDED Status: Active Protocol: Document 04/19/20 10:43 AB (Rec: 04/19/20 12:39 AB [id number]) Orientation Orientation/Cognition Level of Alertness Alert Orientation Name,Age,Birthday,Month,Date, Year,Day of Week,Place, Situation Gross Range of Motion Lower Extremity ROM Assessment Within Functional Limits Strength Lower Extremity Strength Assessment Within Functional Limits Sensation Assessment Sensation Gross Sensation WNL Muscle Tone Muscle Tone WNL Yes M6 PT-IP Treatment Start: 04/19/20 12:23 Freq: NEEDED Status: Active Protocol: Document 04/22/20 10:38 DONTE (Rec: 04/22/20 11:35 [id number]) Physical Therapy Treatment Education Education Provided Precautions,Safety Other Treatments Other Treatment Performed practised deep breathing exercises in chair prior to ambulation. Also used incentive spirometer with deep breathing techniques. M7 PT-IP Assessment and Plan Start: 04/19/20 12:23 Freq: NEEDED Status: Active Protocol: Document 04/22/20 10:38 DONTE (Rec: 04/22/20 11:35 DONTE [id number]) PT Summary Assessment and Plan Potential Rehabilitation Potential Good Status of Condition at Evaluation Evolving Summary Impairments Pain,ROM,Strength,Coordination ,Sensation,Cognition,Bed Mobility,Transfers,Gait, Activity Tolerance Progress Towards Goals Progressing Toward Goals Assessment Summary Pt is improving with mobility and deep breathing. He is having difficulty with processing instructions in breathing exercises and is somewhat confused and continues to have difficulty with word-finding Goals Bed Mobility Goal Independent Transfer Goal Independent,Front Wheeled Walker Gait Goal Independent,Front Wheel Walker Gait Distance 150 Other Goals up/down 2 steps without rails SBA improve ambulation without AD 200 ft independent Days to Meet Goals 8 Frequency of Treatment Frequency Of Treatment Once a Day Treatment Plan Physical Therapy Treatment Plan Bed Mobility Training,Transfer Training,Gait Training, Therapeutic Exercise,Balance Retraining,Discharge Planning, Hot or Cold Pack,Neuromuscular Re-ed Recommendations To Nursing Amount of Assist Needed Standby Assistance Discharge Recommendations PT Discharge Recommendations SNF Rehab Transportation Needs at Discharge Private Vehicle
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
[2020-04-22] MEDS: ALBUTEROL HFA 60 PUFF/8 GM INH INH (16:31)
[2020-04-22] MEDS: lisinopriL 10 MG TABLET 30 MG PO (20:09)
[2020-04-22] MEDS: LORATADINE 10 MG TABLET PO (20:10)
--- NOTE | 2020-04-22 22:13 | PC.NURSE ---
Discussed with patient iv status as pt has been inpatient x 5 days. No documentation of iv change. Pt reports iv to left ac is a new start as of 0400 this a.m. Pt is insistent this is the case. Primary RN able to flush iv and infuse antibiotics without difficulty. Site is without pain, edema, or erythema. Lidocaine patch to back removed as per emar order.
[2020-04-22] MEDS: ACETAMINOPHEN 325 MG TABLET 650 MG PO (22:19)
--- NOTE | 2020-04-22 22:34 | PC.NURSE ---
Pt A&Ox4 but remains slow to answer w/somewhat flat affect. Pt's friend, Mr. Baxter, will call in AM to get update regarding pt. Pt couldn't remember this friend at time of call, but remembered him later in the evening and would like to speak with him when he calls back. Pt would like a half dose of oxycodone later this evening if he cannot sleep.
[2020-04-23] VITALS (11 sets, daily range): BP systolic 139–167; BP diastolic 80–100; PULSE 72–92; RESP 16–20; TEMP 36.6–37; O2SAT 92–97
[2020-04-23] MEDS: PIPERACILLIN-TAZO 3.375 GM/50 ML FROZ.PIGGY IV ×4 (04:18→21:49)
[2020-04-23] MEDS: SODIUM CHLORIDE 0.9% FLUSH 10 ML IV ×3 (04:19→20:29)
[2020-04-23] MEDS: SENNOSIDES 8.6 MG TABLET 17.2 MG PO (08:41)
[2020-04-23] MEDS: TAMSULOSIN 0.4 MG CAPSULE PO (08:41)
[2020-04-23] MEDS: GABAPENTIN 300 MG CAPSULE PO ×2 (08:41→20:26)
[2020-04-23] MEDS: ACETAMINOPHEN 325 MG TABLET 650 MG PO ×2 (08:41→15:51)
[2020-04-23] MEDS: polyethylene glycoL 3350 17 GM POWD.PACK PO (08:42)
[2020-04-23] MEDS: LIDOCAINE PATCH 1 EACH ADH..PATCH TOP (08:42)
--- NOTE | 2020-04-23 08:44 | PM.PREOP ---
Pre-operative Note COVID-19 COVID-19 status: Negative Result date/Date tested (Pos, Neg/Pending): 04/20/20 Interval Note History & Physical reviewed/Exam performed by Physician: Yes Changes to H&P: No
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
[2020-04-23] MEDS: ALBUTEROL HFA 60 PUFF/8 GM INH INH (09:55)
--- NOTE | 2020-04-23 11:02 | CM.DPC ---
Addendum entered by ARLEN Wright 04/23/20 14:06: ADD: SW checked in on pt again to determine if he had gotten the address of where he will be staying and pt states he talked to his friends but forgot to ask and he does not have their phone number as they call the hospital to talk to him and number not in the computer. SW provided pt with pen and paper and he wrote down a couple reminders for himself including to ask for Matthew's phone and address. BF Original Note: DCP Cont: Per MD, pt may remain overnight for ongoing IV-Abx for pneumonia but making progress. Per PT/OT, pt making progress and feel pt can safely d/c home with friends to assist and likely HH. PT/OT aware that pt's [employer] insurance denied SNF auth yesterday for short stay rehab. PT to continue working with pt and OT to complete another SLUMS or a MOKA today to clarify his memory/cognition issues. SW met bedside with pt and explained role and reminded him of [place] denial to cover SNF. Pt is agreeable with d/c plan of home and pt confirms that he now has plans to d/c to his friend (Matthew and Isabell) house for additional assist prior to returning to the [facility] at his other friend's house. ELVIN discussed HH and pt agreeable and provided the HH Choice List and no preference so LUIS ENRIQUE Rodrigues kindly faxing new referral to [facility] based on [facility]endor Calendar. SW requested that pt obtain the address of where he will be staying in order for [facility] to know where to provide home visits. Pt will attempt to call his friend today. SW provided the [facility] brochure to review and called Danielle at [facility] with new referral and likely d/c tomorrow. Plan: SW to follow for obtaining signature on F2F from Surgeon towards plan of d/c to friend's house with new [facility] and obtaining the address for where pt will be staying at d/c for [facility]. ARLEN Wright
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
[2020-04-23 13:52] LABS: Add Manual Diff / Slide Review NO; Basophils Absolute Auto 100 /uL (0-100); Basophils Percent Auto 1.1 % (0-2); Eosinophils Absolute Auto 400 /uL (0-450); Eosinophils Percent Auto 6.3 % (2-4); Hematocrit 38.3 % (41-53); Hemoglobin 13.3 g/dL (13.5-17.5); Lymphocytes Absolute Auto 600 /uL (1100-4500); Lymphocytes Percent Auto 11.1 % (25-40); Mean Corpuscular HGB Conc 34.8 % (30-36); Mean Corpuscular Hemoglobin 32.1 PG (26-34); Mean Corpuscular Volume 92.3 fL (80-100); Monocytes Absolute Auto 700 /uL (0-900); Monocytes Percent Auto 11.2 % (3-14); Neutrophils Absolute Auto 4100 /uL (1500-7000); Neutrophils Percent Auto 70.3 % (50-75); Platelet Count 188 X10^3/uL (150-400); Red Blood Cell Count 4.15 X10^6/uL (4.5-5.9); Red Cell Distribution Width 13.5 % (11.6-14.8); White Blood Cell Count 5.8 X10^3/uL (4.5-11.0)
[2020-04-23 14:00] LABS: Alanine Aminotransferase 47 IU/L (<50); Albumin 4.2 g/dL (3.5-5.0); Albumin Globulin Ratio 1.2 (1.0-2.8); Alkaline Phosphatase 56 U/L (38-126); Aspartate Aminotransferase 44 IU/L (17-59); BUN Creatinine Ratio 12.5 (6-22); Bilirubin Total 1.1 mg/dL (0.2-1.3); Blood Urea Nitrogen 11 mg/dL (9-20); Calcium 9.7 mg/dL (8.4-10.2); Carbon Dioxide 24 mmol/L (22-32); Chloride 106 mmol/L (98-107); Estimated Glomerular Filt Rate > 60.0 mL/min (>60); Globulin 3.5 g/dL (1.7-4.1); Glucose 122 mg/dL (80-110); HEMOLYSIS < 15 (0-50); Potassium 3.8 mmol/L (3.4-5.1); Sodium 139 mmol/L (137-145); Total Protein 7.7 g/dL (6.3-8.2)
[2020-04-23 14:14] LABS: Procalcitonin < 0.05 ng/mL (<0.5)
[2020-04-23] MEDS: SODIUM CHLORIDE 0.9% 250 ML 21 ML IV (15:49)
[2020-04-23] MEDS: LORATADINE 10 MG TABLET PO (20:26)
[2020-04-23] MEDS: lisinopriL 10 MG TABLET 30 MG PO (20:26)
[2020-04-23] MEDS: OXYCODONE IR 5 MG TABLET PO (21:56)
[2020-04-24 01:19] VITALS: BP 147/94; PULSE 78; RESP 16; TEMP 36.9; O2SAT 95
[2020-04-24] MEDS: ACETAMINOPHEN 325 MG TABLET 650 MG PO ×2 (03:15→09:19)
[2020-04-24] MEDS: OXYCODONE IR 5 MG TABLET PO (03:17)
[2020-04-24 03:51] VITALS: BP 152/97; PULSE 85; RESP 20; TEMP 36.8; O2SAT 98
[2020-04-24] MEDS: PIPERACILLIN-TAZO 3.375 GM/50 ML FROZ.PIGGY IV ×2 (04:37→10:41)
[2020-04-24] MEDS: SODIUM CHLORIDE 0.9% FLUSH 10 ML IV (09:15)
[2020-04-24] MEDS: TAMSULOSIN 0.4 MG CAPSULE PO (09:19)
[2020-04-24] MEDS: GABAPENTIN 300 MG CAPSULE PO (09:19)
[2020-04-24] MEDS: LIDOCAINE PATCH 1 EACH ADH..PATCH TOP (09:20)
[2020-04-24 09:26] VITALS: BP 152/96; PULSE 76; RESP 18; TEMP 37.1; O2SAT 93
[2020-04-24] MEDS: ALBUTEROL HFA 60 PUFF/8 GM INH INH (10:18)
[2020-04-24 10:19] VITALS: RESP 18; O2SAT 99
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
[2020-04-24 14:35] VITALS: BP 127/78; PULSE 89; RESP 18; O2SAT 94
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
--- NOTE | 2020-04-25 10:51 | CM.DPC ---
DCP cont: Faxed discharge summary to [facility] Attn: Genesis Blackman at fax # [phone]. Fax confirmation scanned in. Lilia Ferreira, [facility] HospitalStaff Assistant
== END 2020-04-24 15:16 | disposition home or self-care (01) | DRG 963 ==
LOC: ED 18:03 → AC 19:03 → ICU 04-18 08:21 → AC 04-18 14:22 → ICU 04-18 14:22 → AC 04-20 11:47
PROVIDERS: Surgery; Admitting Provider Specialist; Emergency Provider Emergency Medicine; Visit Provider Specialist
DX: S22.22XA Fracture of body of sternum, initial encounter for closed fracture (principal); J18.9 Pneumonia, unspecified organism; S37.812A Contusion of adrenal gland, initial encounter; S27.321A Contusion of lung, unilateral, initial encounter; S06.0X9A Concussion with loss of consciousness of unspecified duration, initial encounter; J98.11 Atelectasis; D62 Acute posthemorrhagic anemia; S22.32XA Fracture of one rib, left side, initial encounter for closed fracture; N40.0 Benign prostatic hyperplasia without lower urinary tract symptoms; J45.909 Unspecified asthma, uncomplicated; I10 Essential (primary) hypertension; R41.82 Altered mental status, unspecified; S05.02XA Injury of conjunctiva and corneal abrasion without foreign body, left eye, initial encounter; S01.81XA Laceration without foreign body of other part of head, initial encounter; R26.2 Difficulty in walking, not elsewhere classified; S41.111A Laceration without foreign body of right upper arm, initial encounter; V43.52XA Car driver injured in collision with other type car in traffic accident, initial encounter; Y92.410 Unspecified street and highway as the place of occurrence of the external cause; Z11.59 Encounter for screening for other viral diseases
CPT/HCPCS: 36415; 51798; 70450; 71045; 71260; 72125; 72170; 73080; 73090; 74177; 80048; 80053; 80076; 80320; 81001; 81003; 82150; 82550; 82553; 83690; 84145; 84153; 84484; 85014; 85025; 85610; 85730; 86850; 86900; 86901; 87635; 93005; 94640; 94762; 96374; 96376; 97110; 97112; 97116; 97129; 97130; 97162; 97165; 97530; 97535; 99221; 99231; 99238; 99285; 99291; J1885; J2270; J2405; J2543; Q9967

== ENCOUNTER → 2020-05-03 14:02 | Outpatient (CLI) | payer OTHER, SELFPAY ==
[2020-04-18 15:21] VITALS: BMI 28.5
--- NOTE | 2020-05-03 14:11 | DI.RAD.S_ITS ---
PROCEDURE: XR CHEST 2V INDICATIONS: f/u r/o infiltrate TECHNIQUE: 2 views of the chest were acquired. COMPARISON: [facility], CR, XR CHEST 1V, 04/18/2020, 22:05. [facility], CR, XR CHEST 1V, 04/20/2020, 9:52. FINDINGS: Surgical changes and devices: None. Lungs and pleura: Improved but not entirely resolved right infrahilar opacity. Tiny volume of streaky atelectasis in the left lung base. No pleural effusion or pneumothorax. Azygos fissure noted. Mediastinum: Mediastinal contours are normal. Heart size is normal. Bones and chest wall: No suspicious bony abnormalities. Soft tissues appear unremarkable. IMPRESSION: Improved but not entirely resolved right infrahilar consolidation and airspace opacity. Continued follow-up to radiographic resolution recommended. Dictated by: Hever Ireland M.D. on 05/03/2020 at 14:33 Approved by: Hever Ireland M.D. on 05/03/2020 at 14:34
[2020-05-03 14:34] LABS: Add Manual Diff / Slide Review NO; Basophils Absolute Auto 100 /uL (0-100); Basophils Percent Auto 0.8 % (0-2); Eosinophils Absolute Auto 400 /uL (0-450); Eosinophils Percent Auto 5.7 % (2-4); Hemoglobin 13.7 g/dL (13.5-17.5); Lymphocytes Absolute Auto 1100 /uL (1100-4500); Lymphocytes Percent Auto 17.1 % (25-40); Mean Corpuscular HGB Conc 34.3 % (30-36); Mean Corpuscular Volume 93.2 fL (80-100); Monocytes Absolute Auto 900 /uL (0-900); Monocytes Percent Auto 13.7 % (3-14); Neutrophils Absolute Auto 3900 /uL (1500-7000); Neutrophils Percent Auto 62.7 % (50-75); Platelet Count 336 X10^3/uL (150-400); Red Blood Cell Count 4.29 X10^6/uL (4.5-5.9); Red Cell Distribution Width 13.4 % (11.6-14.8); White Blood Cell Count 6.3 X10^3/uL (4.5-11.0)
== END ==
PROVIDERS: Referring Provider Specialist; Visit Provider Specialist
DX: J18.9 Pneumonia, unspecified organism (principal); J45.909 Unspecified asthma, uncomplicated; S22.22XA Fracture of body of sternum, initial encounter for closed fracture; S22.39XA Fracture of one rib, unspecified side, initial encounter for closed fracture; S29.9XXA Unspecified injury of thorax, initial encounter; S37.812A Contusion of adrenal gland, initial encounter
CPT/HCPCS: 36415; 71046; 85025